=== PATIENT | female | born 1990 ===

== ENCOUNTER 2016-12-23 21:42 | Emergency (ER) | payer OTHER ==
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
== END 2016-12-23 22:24 | disposition left against medical advice (07) ==
LOC: DL.ED 21:42
DX: S01.81XA Laceration without foreign body of other part of head, initial encounter (principal); Z79.899 Other long term (current) drug therapy; W26.9XXA Contact with unspecified sharp object(s), initial encounter
CPT/HCPCS: 99285